=== PATIENT | male | born 1990 | race Caucasian/White ===

== ENCOUNTER 2023-04-02 15:17 | Emergency (ER) | payer OTHER, SELFPAY ==
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
[2023-04-02 15:30] VITALS: BP 144/84; PULSE 88; RESP 16; TEMP 37.2; O2SAT 95
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
== END 2023-04-02 17:03 ==
PROVIDERS: Emergency Provider Emergency Medicine
DX: S05.01XA Injury of conjunctiva and corneal abrasion without foreign body, right eye, initial encounter (principal); S00.01XA Abrasion of scalp, initial encounter; S00.03XA Contusion of scalp, initial encounter; Y09 Assault by unspecified means
CPT/HCPCS: 99285; 70450; 70486; 99284

== ENCOUNTER 2023-05-18 09:32 | Outpatient (CLI) | payer OTHER, SELFPAY ==
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
== END 2023-05-18 09:33 | disposition home or self-care (01) ==
LOC: DIORS 09:32
PROVIDERS: Visit Provider Student in an Organized Health Care Education/Training Program
DX: M25.512 Pain in left shoulder (principal)
CPT/HCPCS: 73030